=== PATIENT | female | born 1970 | race Caucasian/White ===

== ENCOUNTER 2024-01-21 16:11 | Emergency (ER) | payer OTHER ==
[2024-01-21 16:18] VITALS: BP 100/50; PULSE 68; RESP 18; TEMP 97; BMI 16.8
[2024-01-21] MEDS ORDERED: IBUPROFEN 600 MG TABLET (FP) PO ONE (17:17)
[2024-01-21] MEDS ORDERED: LIDOCAINE 4% PATCH TP ONE (17:23)
[2024-01-21] MEDS ORDERED: KETOROLAC TROMETHAMINE 30 MG/1 ML VIAL ONE (17:23)
[2024-01-21] MEDS: LIDOCAINE 4% PATCH TP ONE (17:29)
[2024-01-21] MEDS: KETOROLAC TROMETHAMINE 30 MG/1 ML VIAL IM ONE (17:29)
[2024-01-22] MEDS ORDERED: LIDOCAINE PATCH REMOVAL MC SCH (06:00)
== END 2024-01-21 17:45 | disposition home or self-care (01) ==
LOC: JERFT 16:11 → JER 16:11 → JERFT 17:45
PROC: 3E0133Z Introduction of Anti-inflammatory into Subcutaneous Tissue, Percutaneous Approach (ICD-10-PCS; principal; 2024-01-21)
DX: M54.9 Dorsalgia, unspecified (principal); M25.561 Pain in right knee; M79.10 Myalgia, unspecified site; M25.519 Pain in unspecified shoulder; V43.62XA Car passenger injured in collision with other type car in traffic accident, initial encounter
CPT/HCPCS: 99284-25